=== PATIENT | female | born 1955 | race Caucasian/White ===

== ENCOUNTER 2016-09-30 07:08 | Emergency (ER) | payer BC ==
--- NOTE | 2016-09-30 07:43 | ED ---
Upper Extremity Pain - HPI Summary HPI Summary: 61 female presents today complaining of left wrist pain after falling on ice today, 09/30/16 around 7:00am while at home trying to save her dog from also slipping. Patient states she landed on her left wrist and instantly felt pain. She admits to swelling, minor discoloration and some tingling in her fingers. She has not taken anything for the pain or swelling. Rates her pain an 8/10, sharp upon movement and achey during rest. Some radiation to distal forearm. Complains of the worst pain on the volar wrist. Denies pain in the left elbow, fingers, hand and shoulder. Denies hitting her head, no LOC. States she broke her ankle in the past but it did not hurt as bad as this. - History of Current Complaint Chief Complaint: EDExtremityUpper Stated Complaint: FALL / LT WRIST INJURY Hx Obtained From: Patient Mechanism Of Injury: Fall From A Standing Position - slipped on ice, FOOSH Onset/Duration: Started Hours Ago - approximately 7:00am Timing: Constant Severity Initially: Moderate Severity Currently: Moderate Pain Location: Wrist - left wrist, more across the ventral side Character: Sharp, Aching, Throbbing, Stiffness Aggravating Factor(s): Movement, Lifting, Flexion, Extension, Internal/External Rotation, Abduction, Adduction, Twisting, Pulling Alleviating Factor(s): Rest, Ice Associated Signs & Symptoms: Positive: Swelling, Bruising, Weakness, Numbness/ Tingling. Negative: Back Pain, Neck Pain Related History: Dominant Hand Right - Risk Factors Non-Orthopedic Risk Factor: Negative DVT Risk Factors: Negative Septic Arthritis Risk Factor: Negative - Allergies/Home Medications Allergies/Adverse Reactions: Allergies Allergy/AdvReac Type Severity Reaction Status Date / Time Penicillins Allergy Intermediate Hives Verified 09/30/16 07:17 PMH/Surg Hx/FS Hx/Imm Hx Endocrine/Hematology History: Reports: Hx Thyroid Disease - HYPO Denies: Hx Diabetes Cardiovascular History: Reports: Hx Hypertension Respiratory History: Denies: Hx Asthma, Hx Chronic Obstructive Pulmonary Disease (COPD) GI History: Reports: Hx Gastroesophageal Reflux Disease Denies: Hx Ulcer Musculoskeletal History: Reports: Hx of Fracture(s) - ankle Psychiatric History: Reports: Hx Depression - Surgical History Surgery Procedure, Year, and Place: APPENDECTOMY. LEFT OVARY AND FALLOPIAN TUBE REMOVAL. Sinus surgery Infectious Disease History: No Infectious Disease History: Denies: Hx Clostridium Difficile, Hx Hepatitis, Hx Human Immunodeficiency Virus (HIV), Hx of Known/Suspected MRSA, Hx Shingles, Hx Tuberculosis, Hx Known/ Suspected VRE, History Other Infectious Disease, Traveled Outside the [place] in Last 30 Days - Family History Known Family History: Positive: Hypertension - Social History Alcohol Use: Occasionally Substance Use Type: Reports: None Smoking Status (MU): Never Smoked Tobacco Have You Smoked in the Last Year: No Review of Systems Constitutional: Negative Eyes: Negative ENT: Negative Cardiovascular: Negative Respiratory: Negative Gastrointestinal: Negative Genitourinary: Negative Positive: Arthralgia - left wrist, Myalgia, Decreased ROM, Edema Skin: Negative Positive: Weakness - left wrist due to pain, Numbness - left fingers are tingling, however sensation still 5/5 Psychological: Normal All Other Systems Reviewed And Are Negative: Yes Physical Exam Triage Information Reviewed: Yes Vital Signs On Initial Exam: Initial Vitals Temp Pulse Resp BP Pulse Ox 98.0 F 81 16 105/66 100 09/30/16 07:12 09/30/16 07:12 09/30/16 07:12 09/30/16 07:12 09/30/16 07:12 Vital Signs Reviewed: Yes Appearance: Positive: Well-Appearing, Well-Nourished, Pain Distress - mild during rest of left wrist Skin: Positive: Warm, Skin Color Reflects Adequate Perfusion - <2 sec cap refill , skin intact, Dry Head/Face: Positive: Normal Head/Face Inspection Eyes: Positive: Normal ENT: Positive: Normal ENT inspection Neck: Positive: Supple, Nontender Respiratory/Lung Sounds: Positive: Clear to Auscultation, Breath Sounds Present Cardiovascular: Positive: Normal, RRR Abdomen Description: Positive: Nontender Musculoskeletal: Positive: Limited @ - Left wrist on flexion, extenstion, radial and ulnar deviation. pain on palpation of distal forearm. left wrist minor ecchymosis on vola/ulnar side. no crepitus noted. difficult to feel for step-off due to edema and discomfort of patient. strength of left wrist limited due to pain. Able to move all digits and make fist, however causes pain. Sensation 5/5. Patient complains of tingling in digits. Obvious deformity on volar, ulnar side when compared to the right wrist. 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 No left elbow/hand/finger/shoulder pain on palpation, full ROM. Right wrist normal., Pain @ - left wrist 8/10. exacerbated during movement, Edema Left - wrist Neurological: Positive: Normal, Sensory/Motor Intact, Alert, Oriented to Person Place, Time, CN Intact II-III, Reflexes Intact Psychiatric: Positive: Normal Diagnostics - Vital Signs Vital Signs Temp Pulse Resp BP Pulse Ox 09/30/16 07:12 98.0 F 81 16 105/66 100 - Laboratory Lab Statement: Any lab studies that have been ordered have been reviewed, and results considered in the medical decision making process. - Radiology left wrist Xray Interpretation: Positive (See Comments) - COMMINUTED INTRA-ARTICULAR FRACTURES OF THE DISTAL RADIUS AND ULNA Radiology Interpretation Completed By: Radiologist Course/Dx - Course Course Of Treatment: Patient was given ice and pain management. Left wrist X- ray was taken, showing radial and ulnar head fractures. Discussed care with Dr Abernathy. Sugar tong splint was applied. Patient will be given pain management and sling to take home. - Diagnoses Differential Diagnosis/HQI/PQRI: Positive: Arthritis, Contusion, Fracture ( Closed), Strain, Sprain Provider Diagnoses: Fracture of radial head, left, closed, Closed fracture of head of left ulna, Colles' fracture - Physician Notifications Discussed Care Of Patient With: Dr Daisy Abernathy Orthopedics Time Discussed With Above Provider: 08:55 Instructed by Provider To: Have Pt Call For Appt. - Will be seen in office on Sunday10/02/16. Discharge - Discharge Plan Condition: Stable Disposition: HOME Prescriptions: HYDROcodone/ACETAMIN 5-325 MG* [[place] 5-325 TAB*] 1 tab PO Q6H PRN #12 tab MDD 4 pills PRN Reason: Pain Patient Education Materials: Arm Fracture in Adults (ED), Hydrocodone/ Acetaminophen (By mouth), Wrist Fracture in Adults (ED) Referrals: No Primary Care Phys,NOPCP [Primary Care Provider] - Daisy Abernathy MD [Medical Doctor] - Additional Instructions: Please call orthopedics first thing Sunday morning to be evaluated. Take medication as prescribed for pain and inflammation as needed. Ice and elevation will also help with pain and swelling. If anything worsens or if the splint feels to tight (numb, cold fingers) please return to the ER immediately.
[2016-09-30] MEDS ORDERED: HYDROcodone/ACETAMIN 5-325 MG* 1 TAB PO ONE (07:51)
--- NOTE | 2016-09-30 08:41 | RAD ---
INDICATION: Left wrist injury COMPARISON: August 08, 2011 TECHNIQUE: AP, lateral, and oblique views were obtained. FINDINGS: There is a mildly impacted, comminuted, intra-articular distal radial fracture. There is also a fracture the distal ulna with comminution. There is mild angular deformity. There is diffuse soft tissue swelling.. IMPRESSION: COMMINUTED INTRA-ARTICULAR FRACTURES OF THE DISTAL RADIUS AND ULNA
[2016-09-30 10:49] VITALS: BP 166/68
== END 2016-09-30 10:43 | disposition home or self-care (01) ==
LOC: ED 07:08
DX: S52.122A Displaced fracture of head of left radius, initial encounter for closed fracture (principal); S52.602A Unspecified fracture of lower end of left ulna, initial encounter for closed fracture; W00.9XXA Unspecified fall due to ice and snow, initial encounter; Y93.9 Activity, unspecified; Y92.9 Unspecified place or not applicable; Y99.9 Unspecified external cause status; Z88.0 Allergy status to penicillin
CPT/HCPCS: 99282

== ENCOUNTER → 2016-10-03 | Day surgery (SDC) | payer BC ==
--- NOTE | 2016-10-02 16:13 | HP ---
PREOPERATIVE HISTORY AND PHYSICAL: DATE OF ADMISSION/SURGERY: 10/03/16 DATE OF OFFICE VISIT/ENCOUNTER: 10/02/16 ATTENDING SURGEON: Daisy Abernathy MD PROCEDURE: Left wrist open reduction internal fixation. CHIEF COMPLAINT: Left wrist pain after fall. HISTORY OF PRESENT ILLNESS: This is a 61-year-old female who sustained injury to her left wrist on 09/30/16 when she was trying to help her dog on some ice, when she slipped falling on to an outstretched left hand. She was seen at [facility] and had x-rays taken, which showed a comminuted displaced fracture of her distal radius. She was splinted in a sugar-tong splint, and referred to Dr. Abernathy for further evaluation and treatment considerations. This is her nondominant hand. Dr. Abernathy is recommending surgical intervention at this time for best outcome. The patient has consented to proceed. PAST MEDICAL HISTORY: 1. Hypertension. 2. Hypothyroidism. 3. GERD. 4. Depression/anxiety. 5. Arthritis. PAST SURGICAL HISTORY: 1. Appendectomy. 2. Sinus surgery. CURRENT MEDICATIONS: 1. Calcium 500 plus vitamin D twice a day. 2. Leflunomide 20 mg daily. 3. Levothyroxine sodium 150 mcg daily. 4. Lisinopril 20 mg daily. 5. Multivitamin 1 daily. 6. Venlafaxine HCL ER 75 mg 1 tab b.i.d. 7. Vitamin C 500 mg 1 tab daily. ALLERGIES: 1. PENICILLIN causes hives. 2. PROZAC causes headache. FAMILY MEDICAL HISTORY: Ovarian cancer and lung cancer. 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 She denies tobacco and illicit drug use. She does admit to alcohol use on occasion. REVIEW OF SYSTEMS: General: Negative for fevers, chills, or night sweats. No known anesthesia problems. HEENT: Negative for headache, lightheadedness, or syncopal episodes. Integumentary: Negative for abrasions, lesions, or open wounds. Cardiothoracic: Positive for hypertension. Negative for chest pain or palpitations. Pulmonary: Negative for shortness of breath with exertion, chronic cough, or COPD. GI: Positive for GERD. Negative for nausea, vomiting , diarrhea, or constipation. : Negative for nocturia, urinary frequency, urgency, history of UTIs, or kidney problems. Musculoskeletal: Positive for current complaint. Negative for chronic or intermittent back pain or history of fractures. Neurological: Positive for depression/anxiety. Negative for paresthesias, numbness, history of seizure, stroke, or epilepsy. Endocrine: Positive for hypothyroidism. Negative for diabetes. Hematologic: Negative for easy bruising, anemia, excessive bleeding, or history of DVT. Infectious Disease: Negative for history of MRSA, hepatitis C, or HIV. PHYSICAL EXAMINATION GENERAL: Well-developed, well nourished 61-year-old female, in no acute distress. VITAL SIGNS: Height 5 feet 4 inches, weight 190 pounds, pulse rate 60, blood pressure 96/60. HEENT: Normocephalic, atraumatic. Pupils are equal, round, and reactive to light and accommodation. Extraocular movements are intact. NECK: Supple. No palpable lymph nodes. Throat is clear. PULMONARY: Lungs are clear to auscultation bilaterally. No wheezes, rales, or rhonchi. CARDIOTHORACIC: Regular rate and rhythm. S1 and S2. No murmurs, rubs, or gallops. No edema. ABDOMEN: Positive bowel sounds, soft, nontender. NEUROLOGICAL: Alert and oriented x3. Cranial nerves II through X11 were intact. Sensation is intact to light touch. MUSCULOSKELETAL: On exam of her left upper extremity, she is in a well-padded sugar-tong splint. Her fingers have mild swelling. She has good motion in her fingers and neurovascular function is intact. IMAGING STUDIES: X-ray, AP, lateral, and oblique of the left wrist show comminuted intraarticular distal radius fracture with significant apex, volar angulation, as well as a nondisplaced ulnar styloid fracture. IMPRESSION: Left distal radius and ulnar styloid fracture. PLAN: The patient is scheduled to an open reduction internal fixation at the left distal radius with Dr. Abernathy on 10/03/16. She will return to the office in 10 to 14 days postop for followup and suture removal. A prescription for oxycodone 5 mg was e-scribed to the patient's pharmacy for postoperative pain management. EMERALD FLOWER [id number]/[facility] #: [id number] NIMESH
[~2016-10-03] MED LIST: Acetaminophen TAB* 325 MG PO PRN; Buffered Lidocaine 1% SYR 3ML* 3 ML/SYR SYRINGE INTRADERM ONE; Buffered Lidocaine 1% SYR 3ML* 3 ML/SYR SYRINGE ONE; Bupivacaine 0.5% SDV PF* 30 ML VIAL ONE; Clindamycin 900 MG IVPREMIX(* 900 MG/50 ML SDV IV ONE; Dexamethasone IV* 4 MG/ML 1 ML (4 MG) ONE; DiMENhydriNATE IV* 50 MG/ML VIAL IV PUSH PRN; EPHEDrine (Pressors)* 50 MG/ML VIAL ONE; Famotidine IV* 10 MG/ML 2 ML (20 mg) IV ONE; Famotidine IV* 10 MG/ML 2 ML (20 mg) ONE; HYDROmorphone INJ* 1 MG/ML CARPUJECT SYRINGE IV PRN; HYDROmorphone INJ* 1 MG/ML CARPUJECT SYRINGE ONE; KETAMINE HCL* 50 MG/ML 10 ML VIAL ONE; Ketorolac INJ* 30 MG/ML 1 ML VIAL ONE; Lidocaine 2% PF * 5 ML VIAL ONE; Midazolam* 1 MG/ML 5 ML VIAL (5 MG) ONE; Ondansetron INJ* 2 MG/ML VIAL ONE; Phenylephrine IV* 40 MCG/ML 10 ML SYRINGE ONE; Propofol* 10 MG/ML 20 ML BTL IV PUSH ONE; ROPIVACAINE 5 MG/ML 30 ML BTL (0.5%) ONE; fentaNYL* 50 MCG/ML 2 ML VIAL (100 MCG VIAL) ONE; oxyCODONE/Acetamin 5/325 MG* TAB PO PRN
[2016-10-03 16:22] VITALS: BP 99/55
--- NOTE | 2016-10-04 02:50 | OP ---
DATE OF OPERATION: 10/03/16 - [facility] DATE OF : 53 SURGEON: Daisy Abernathy MD DISEASE INTERVENTION SPECIALIST: EMERALD Hernandez ANESTHESIOLOGIST: Anya Hutchins MD ANESTHESIA: General. PRE-OP DIAGNOSIS: Comminuted intraarticular fracture of the left distal radius. POST-OP DIAGNOSIS: Comminuted intraarticular fracture of the left distal radius. OPERATIVE PROCEDURE: Open reduction and internal fixation of the left distal radius. ESTIMATED BLOOD LOSS: Zero. TOURNIQUET TIME: 35 minutes. INDICATIONS: [place] is a 61-year-old female who slipped on the ice when she was trying to help her dog. She landed on her outstretched left hand and suffered a fracture of her distal radius. X-rays shows it to be comminuted markedly angulated with an apex volar angulation deformity and intraarticular with at least 2 intraarticular fragments and several other fragments. There is also a nondisplaced ulnar styloid fracture. The patient presents for open reduction and internal fixation of the left distal radius. DESCRIPTION OF PROCEDURE: The patient was brought to the operating room, was given a general anesthetic, and placed in the supine position on the operating table with a tourniquet around the left upper arm. Skin of the left upper extremity was prepped and draped in the usual sterile fashion. The upper extremity was exsanguinated and the tourniquet elevated to 250 mmHg. A 10 cc of 0.5% plain Marcaine was injected in the area of the incision. A longitudinal incision was made over the FCR tendon. We dissected sharply through the superficial and deep portion of the tendon sheath and then retracted the FPL muscle. The pronator quadratus was incised and subperiosteally dissected off of the distal radius. The fracture fragments were reduced with traction and flexion and a standard 3-hole plate from the [employer] distal radius set was secured with 1 proximal screw. The position of the hardware and fracture fragment was checked on the C-arm in the AP and lateral views and found to be satisfactory. There was good length and dorsal tilt. Two separate intraarticular fragments were secured with separate screws and the 6 distal holes and the plate were filled securing the intraarticular fragments to the proximal fragments. Remaining 2 proximal screws were placed as well. The position of the hardware and fracture fragments were checked on the C- arm in the AP and lateral views and found to be satisfactory. The wound was irrigated. The pronator quadratus was repaired over the plate. The FCR tendon sheath was repaired with 2-0 Polysorb suture and the skin edge was reapproximated with 4-0 nylon suture. The wound was dressed with Xeroform, 4x4, Webril, and a volar splint with the wrist in flexion. The patient tolerated the procedure well and was brought to the recovery room in good condition. [id number]/[facility] #: [id number] NIMESH
--- NOTE | 2016-10-04 17:17 | RAD ---
CPT II Codes: 6045F INDICATION: Fluoroscopic imaging provided during plate and screw fixation of the left distal radius TECHNIQUE: Intraoperative fluoroscopy was provided during plate and screw fixation of the left distal radius. FINDINGS: 2 spot films depict application of a plate and screw fixator overlying the volar surface of the distal left radius spanning the patient's minimally displaced fracture. Fluoroscopy time: 26 seconds IMPRESSION: As above.
== END | disposition home or self-care (01) ==
LOC: OREAST 10:36
PROVIDERS: ATTEND Orthopaedic Surgery
DX: S52.572A Other intraarticular fracture of lower end of left radius, initial encounter for closed fracture (principal); S52.615A Nondisplaced fracture of left ulna styloid process, initial encounter for closed fracture; I10 Essential (primary) hypertension; E03.9 Hypothyroidism, unspecified; W00.2XXA Other fall from one level to another due to ice and snow, initial encounter; Y92.89 Other specified places as the place of occurrence of the external cause
CPT/HCPCS: 76000; C1713; C1776; J1100; J1170; J1885; J2250; J2405; J2704; J2795; J3010

== ENCOUNTER 2018-05-07 13:36 | Emergency (ER) | payer BC ==
[2018-05-07 13:48] VITALS: BP 131/82
--- OUTSIDE RECORDS SUMMARY | 2018-05-07 13:48 | XMS REPORT ---
:1955 External Reference #:[id number] Author Organization [employer] [facility] Address [address] [place] [address] [place] [address] Phone [phone] Care Team Providers Name Role Phone Kaye Vizcaino MD Primary Care Physician Unavailable Payers Type Date Identification Numbers Payment Provider Subscriber Health Maintenance Effective: Policy Number: [facility] Organization (HMO) 09/17/2017 [id number] Expires: 09/17/2017 PayID: [id number] [address] [address] [place] [address] Medigap Part B Policy Number: [id number] [facility] PayID: [id number] [address] [place] [address] Problems Date Description Provider Status Onset: 03/18/2012 Degenerative joint disease of hand Devaughn Covington M.D. Active Note: xr hands xr lumbar Onset: 03/18/2012 Rheumatoid arthritis Devaughn Covington M.D. Active Note: marginal diagnosis- mild elev crp, auto immune activation ashley positive low titre, anca positive low titre but without specific clinical features rf neg , ccp neg Onset: 01/23/2018 Obstructive sleep apnea Anya Christie DNP, RN, Active syndrome M[employer] INTELLIGENCE OFFICER-BC Onset: 01/23/2018 Body mass index 30+ - obesity Anya Christie DNP, RN, Active [employer] INTELLIGENCE OFFICER-BC Family History Date Family Member(s) Problem(s) Comments General Lung Cancer Father Lung Cancer Father due to Lung Cancer () Father Heavy smoker Mother Ovarian Cancer Mother due to Ovarian Cancer () Mother Heavy smoker Siblings 2 1 brother and 1 sister Social History Type Date Description Comments Marital Status Lives With 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 Cigarette Use Never Smoked Cigarettes ETOH Use Occasionally consumes alcohol Smoking Patient has never smoked Recreational Drug Use Denies Drug Use Daily Caffeine Consumes on average 3 cups of regular coffee per day Exercise Type/Frequency Exercises regularly Walking every day Allergies, Adverse Reactions, Alerts Date Description Reaction Status Severity Comments 02/07/2011 Penicillin active 02/07/2011 Prozac active 01/23/2018 Environmental active Dust mites, sugar maple tree pollen Medications Medication Date Status Form Strength Qnty SIG Indications Ordering Provider Humira 03/08 Active PSKT 40mg/0.8M 6unit inject 40 L s mg Aurora, subcutaneo M.D. us once every other week prefilled syringe Meloxicam 02/13 Active Tablets 7.5mg 45tab take one s tab twice Aurora, daily as M.D. needed for pain, avoid other nsaids Voltaren 12/31 Active Gel 1% 200un apply 2 M06.4 its grams Aurora, twice M.D. daily as needed for pain to the hands Osteo Bi Flex 11/29 Active Tablets not taking Anival Simon Levothyroxine Active Tablets 125mcg 90tab 1 po qd Unknown Sodium s Calcium-Magnesium- Active Tablets -D3 qid Unknown Zinc-D3 Multi Vitamin Active Tablets 1 po qd Lisinopril Active Tablets 10mg 1 po qd Venlafaxine HCL ER Active Caps ER 75mg 30cap once daily 24HR s with a 150 mg tab daily Vitamin B-Complex Active Tablets 1 by mouth Unknown every day Melatonin Active Capsules 10mg 1 tab by Unknown /0000 mouth at bedtime as needed for insomnia Prednisone 03/08 Hx Tablets 10mg 30tab take 4 s tabs by Aurora, - mouth M.D. 04/04 daily for 2 days then 3 tabs daily for 2 days then 2 tabs for 2 days then 1 tab for 2 days then d/c Sulfasalazine 02/26 Hx Tablets 500mg 45tab Take one s capsule/ta Aurora, - blet daily M.D. 03/08 by mouth for 1 week then 1 twice daily ongoing Oxycodone HCL 10/02 Hx Tablets 5mg 30tab 1-2 by S52.572A Daisy mouth Michela, - after M.D. 11/16 therapy needed pain Leflunomide 12/14 Hx Tablets 20mg 30tab 1 po qd carlos Covington M.D. - 12/31 Meloxicam 02/07 Hx Tablets 15mg 90tab take 1 s tablet by Anival Covington - mouth once 12/31 Hydroxychloroquine 01/12 Hx Tablets 200mg 60tab 1 po bid carlos Covington M.D. - 08/08 Leflunomide 12/30 Hx Tablets 20mg 90tab 1 po qd carlos Covington M.D. - 08/08 Vitamin C Hx Tablets 500mg 90tab 1 po qd Unknown /0000 ER s - 11/29 Medications Administered in Office Medication Date Status Form Strength Qnty SIG Indications Ordering Provider PPD Administered Injection Nurse Visit 8 RH Immunizations CPT Code Status Date Vaccine Reaction Lot # [id number] Given 04/04/2018 Pneumococcal Conjugate no immediate reaction [id number] Vaccine 13 Valent For noted Intramuscular Use Vital Signs Date Vital Result Comment 04/23/2018 Height 64 inches 5'4" Weight 203.31 lb Heart Rate 66 /min BP Systolic Sitting 124 mmHg Rue large cuff BP Diastolic Sitting 82 mmHg Rue large cuff Respiratory Rate 16 /min O2 % BldC Oximetry 96 % BMI (Body Mass Index) 34.9 kg/m2 04/04/2018 Height 64 inches 5'4" Weight 202.00 lb Heart Rate 95 /min BP Systolic Sitting 111 mmHg BP Diastolic Sitting 67 mmHg Respiratory Rate 14 /min Pain Level 2 BMI (Body Mass Index) 34.7 kg/m2 01/23/2018 Height 64 inches 5'4" Weight 199.25 lb Heart Rate 86 /min BP Systolic Sitting 122 mmHg Lue reg cuff BP Diastolic Sitting 80 mmHg Lue reg cuff Respiratory Rate 16 /min O2 % BldC Oximetry 96 % On Ra BMI (Body Mass Index) 34.2 kg/m2 01/14/2018 Height 64 inches 5'4" Weight 198.12 lb Heart Rate 72 /min BP Systolic Sitting 120 mmHg BP Diastolic Sitting 70 mmHg Respiratory Rate 14 /min O2 % BldC Oximetry 95 % BMI (Body Mass Index) 34.0 kg/m2 Neck Circumference in inches 15 12/31/2017 Height 64 inches 5'4" Weight 200.00 lb Heart Rate 80 /min BP Systolic Sitting 104 mmHg BP Diastolic Sitting 62 mmHg Respiratory Rate 14 /min Pain Level 3 BMI (Body Mass Index) 34.3 kg/m2 11/29/2017 Height 64 inches 5'4" Weight 200.38 lb Heart Rate 72 /min BP Systolic Sitting 128 mmHg BP Diastolic Sitting 89 mmHg Respiratory Rate 14 /min Pain Level 3 BMI (Body Mass Index) 34.4 kg/m2 12/11/2016 Height 64 inches 5'4" Weight 170.00 lb Heart Rate 82 /min BP Systolic 120 mmHg BP Diastolic 78 mmHg Respiratory Rate 14 /min Body Temperature 97.1 F Pain Level 3 BMI (Body Mass Index) 29.2 kg/m2 11/13/2016 Height 64 inches Weight 170.00 lb Heart Rate 74 /min BP Systolic 120 mmHg BP Diastolic 74 mmHg Respiratory Rate 14 /min Pain Level 2 BMI (Body Mass Index) 29.2 kg/m2 10/16/2016 Height 64 inches 5'4" Weight 170.00 lb Respiratory Rate 18 /min Body Temperature 97.6 F Pain Level 0 BMI (Body Mass Index) 29.2 kg/m2 10/02/2016 Height 64 inches 5'4" Weight 190.00 lb Heart Rate 60 /min BP Systolic Sitting 96 mmHg BP Diastolic Sitting 60 mmHg Respiratory Rate 16 /min Pain Level 8 BMI (Body Mass Index) 32.6 kg/m2 03/18/2012 Weight 201.00 lb BP Systolic 116 mmHg BP Diastolic 78 mmHg 12/15/2011 Height 63.5 inches 5'3.50" Weight 198.38 lb Heart Rate 72 /min BP Systolic Sitting 130 mmHg BP Diastolic Sitting 72 mmHg BMI (Body Mass Index) 34.6 kg/m2 08/08/2011 Height 63.5 inches 5'3.50" Weight 203.00 lb Heart Rate 78 /min BP Systolic Sitting 118 mmHg BP Diastolic Sitting 80 mmHg BMI (Body Mass Index) 35.4 kg/m2 05/02/2011 Weight 194.00 lb Heart Rate 78 /min BP Systolic 128 mmHg BP Diastolic 70 mmHg 02/07/2011 Height 61 inches 5'1" Weight 198.00 lb Heart Rate 68 /min BP Systolic 122 mmHg BP Diastolic 70 mmHg BMI (Body Mass Index) 37.4 kg/m2 Results Test Date Test Result H/L Range Note Comp Metabolic Panel 04/03/2018 Sodium 139 mmol/L 135-145 Potassium 4.1 mmol/L 3.5-5.0 Chloride 103 mmol/L 101-111 Co2 Carbon Dioxide 28 mmol/L 22-32 Anion Gap 8 mmol/L 2-11 Glucose 93 mg/dL 70-100 Blood Urea Nitrogen 16 mg/dL 6-24 Creatinine 0.56 mg/dL 0.51-0.95 BUN/Creatinine Ratio 28.6 High 8-20 Calcium 9.0 mg/dL 8.6-10.3 Total Protein 6.3 g/dL Low 6.4-8.9 Albumin 3.8 g/dL 3.2-5.2 Globulin 2.5 g/dL 2-4 Albumin/Globulin Ratio 1.5 1-3 Total Bilirubin 0.40 mg/dL 0.2-1.0 Alkaline Phosphatase 57 U/L 34-104 Alt 18 U/L 7-52 Ast 15 U/L 13-39 Egfr Non- 109.0 >60 Egfr 131.9 >60 1 Laboratory test finding 04/03/2018 C Reactive Protein 12.84 mg/L High < 8.01 CBC Auto Diff 04/03/2018 White Blood Count 7.0 10^3/uL 3.5-10.8 Red Blood Count 4.41 10^6/uL 4.00-5.40 Hemoglobin 12.6 g/dL 12.0-16.0 Hematocrit 38 % 35-47 Mean Corpuscular Volume 86 fL 80-97 Mean Corpuscular Hemoglobin 29 pg 27-31 Mean Corpuscular HGB Conc 33 g/dL 31-36 Red Cell Distribution Width 16 % High 10.5-15 Platelet Count 198 10^3/uL 150-450 Mean Platelet Volume 7.6 um3 7.4-10.4 Abs Neutrophils 4.4 10^3/uL 1.5-7.7 Abs Lymphocytes 1.8 10^3/uL 1.0-4.8 Abs Monocytes 0.4 10^3/uL 0-0.8 Abs Eosinophils 0.3 10^3/uL 0-0.6 Abs Basophils 0 10^3/uL 0-0.2 Abs Nucleated RBC 0 10^3/uL Granulocyte % 63.3 % 38-83 Lymphocyte % 26.4 % 25-47 Monocyte % 5.9 % 0-7 Eosinophil % 3.8 % 0-6 Basophil % 0.6 % 0-2 Nucleated Red Blood Cells % 0 Laboratory test finding 04/03/2018 Erythrocyte Sed Rate 11 mm/Hr 0-30 Laboratory test finding 02/19/2018 Erythrocyte Sed Rate 16 mm/Hr 0-30 2 C Reactive Protein 6.92 mg/L High < 5.00 3 CBC Auto Diff 02/19/2018 White Blood Count 5.9 10^3/uL 3.5-10.8 Red Blood Count 4.54 10^6/uL 4.0-5.4 Hemoglobin 13.1 g/dL 12.0-16.0 Hematocrit 39 % 35-47 Mean Corpuscular Volume 86 fL 80-97 Mean Corpuscular Hemoglobin 29 pg 27-31 Mean Corpuscular HGB Conc 34 g/dL 31-36 Red Cell Distribution Width 15 % 10.5-15 Platelet Count 255 10^3/uL 150-450 Mean Platelet Volume 7.5 um3 7.4-10.4 Abs Neutrophils 3.7 10^3/uL 1.5-7.7 Abs Lymphocytes 1.7 10^3/uL 1.0-4.8 Abs Monocytes 0.3 10^3/uL 0-0.8 Abs Eosinophils 0.1 10^3/uL 0-0.6 Abs Basophils 0 10^3/uL 0-0.2 Abs Nucleated RBC 0 10^3/uL Granulocyte % 62.6 % 38-83 Lymphocyte % 29.0 % 25-47 Monocyte % 5.8 % 0-7 Eosinophil % 2.0 % 0-6 Basophil % 0.6 % 0-2 Nucleated Red Blood Cells % 0.1 Comp Metabolic Panel 02/19/2018 Sodium 141 mmol/L 139-145 Potassium 4.0 mmol/L 3.5-5.0 Chloride 106 mmol/L 101-111 Co2 Carbon Dioxide 30 mmol/L 22-32 Anion Gap 5 mmol/L 2-11 Glucose 104 mg/dL High 70-100 Blood Urea Nitrogen 15 mg/dL 6-24 Creatinine 0.60 mg/dL 0.51-0.95 BUN/Creatinine Ratio 25.0 High 8-20 Calcium 8.6 mg/dL 8.6-10.3 Total Protein 6.4 g/dL 6.4-8.9 Albumin 3.8 g/dL 3.2-5.2 Globulin 2.6 g/dL 2-4 Albumin/Globulin Ratio 1.5 1-3 Total Bilirubin 0.30 mg/dL 0.2-1.0 Alkaline Phosphatase 63 U/L 34-104 Alt 22 U/L 7-52 Ast 17 U/L 13-39 Egfr Non- 100.6 >60 Egfr 129.4 >60 4 Laboratory test finding 12/26/2017 Myeloperoxidase AB 3.9 U 5 Proteinase 3 <0.2 U 6 Urinalysis Profile 12/26/2017 Urine Color Yellow Urine Appearance Cloudy Urine Specific Lawler 1.009 Low 1.010-1.030 Urine pH 6.0 5-9 Urine Urobilinogen Negative Negative Urine Ketones Negative Negative Urine Protein Negative Negative Urine Leukocytes Negative Negative Urine Blood Negative Negative Urine Nitrite Negative Negative Urine Bilirubin Negative Negative Urine Glucose Negative Negative Ana Igg AB Reflex 11/29/2017 SS-A/Ro Antibody <0.2 U 7 SS-B/La Antibody <0.2 U 8 Sm (Llamas) IgG Antibody <0.2 U 9 U1-nRNP Antibody <0.2 U 10 Scl-70 (Scleroderma) Antibody <0.2 U 11 Shasha-1 Antibody <0.2 U 12 Anca AB Ser If 11/29/2017 C-Anca Negative Negative P-Anca Positive Negative 13 Laboratory test finding 11/29/2017 Angiotensin Converting Enzyme 21 U/L 8 - 53 14 TSH (Thyroid Stim Horm) 1.13 mcIU/mL 0.34-5.60 15 C Reactive Protein 10.38 mg/L High < 5.00 16 Hla B27 11/29/2017 Hla B27 Negative 17 Hla B27 Interp See Comment 18 Laboratory test finding 11/29/2017 Creatine Kinase(CK) 37 U/L 10-223 19 Rheumatoid Factor <10 IU/mL 0-14 20 Cyclic Citrullinated Pep Igg <15.6 U 21 Immunoglobulins Serum Quant 11/29/2017 Immunoglobulin G 912 mg/dL 767 - 1590 22 Immunoglobulin M 86 mg/dL 37 - 286 Immunoglobulin A 259 mg/dL 61 - 356 Basic Metabolic Panel 11/29/2017 Sodium 138 mmol/L 133-145 Potassium 4.3 mmol/L 3.5-5.0 Chloride 102 mmol/L 101-111 Co2 Carbon Dioxide 30 mmol/L 22-32 Anion Gap 6 mmol/L 2-11 Glucose 102 mg/dL High 70-100 Blood Urea Nitrogen 13 mg/dL 6-24 Creatinine 0.54 mg/dL 0.51-0.95 BUN/Creatinine Ratio 24.1 High 8-20 Calcium 9.2 mg/dL 8.6-10.3 Egfr Non- 114.0 >60 Egfr 146.6 >60 23 Pthi 11/29/2017 Calcium (PTH Intact) 9.3 mg/dL 8.6-10.3 PTH Intact 3.6 pmol/L 1.3-9.3 Vitamin B12 And Folate Serum 11/29/2017 Vitamin B12 223 pg/mL 180-914 24 Folic Acid (Folate) > 20.00 ng/mL >3.99 25 Laboratory test finding 11/29/2017 Erythrocyte Sed Rate 17 mm/Hr 0-30 26 Complement C3 144 mg/dL 75 - 175 27 Nuclear AB (Ashley) By Ifa Igg <1:80 (Negative) 28 Complement C4 30 mg/dL 14 - 40 29 Anti Double Stranded Dna AB <12.3 IU/mL 30 Basic Metabolic Panel 02/22/2012 Sodium 140 mmol/L 135-145 Potassium 4.2 mmol/L 3.5-5.0 Chloride 105 mmol/L 101-111 Co2 (Carbon Dioxide) 31.0 mmol/L 22-32 Anion Gap 4.0 mmol/L 2-11 31 Glucose 103 mg/dL High 70-100 BUN 13 mg/dL 6-24 Creatinine 0.5 mg/dL Low 0.50-1.40 One Over Creatinine 2.00 BUN/Creatinine Ratio 26.0 High 8-20 Calcium 9.1 mg/dL 8.1-9.9 eGFR Non- 126.7 > 60 eGFR 163.0 > 60 32 Liver Function Panel 02/22/2012 Total Protein 6.0 GM/DL Low 6.2-8.1 Albumin 3.8 GM/DL 3.6-5.4 Globulin 2.2 GM/DL 2-4 Albumin/Globulin Ratio 1.7 1-3 Bilirubin Total 0.6 mg/dL 0.4-1.5 33 Bilirubin Direct 0.1 mg/dL 0.1-0.5 Indirect Bilirubin 0.5 mg/dL 0.3-1.0 34 Alkaline Phosphatase 69 U/L 30-110 Alt (SGPT) 34 U/L 14-54 Ast (Sgot) 24 U/L 12-42 Laboratory test finding 02/22/2012 C Reactive Protein 0.6 mg/dL High Less Than 0.5 CBC With Manual Diff 02/22/2012 White Blood Count 3.9 CUMM Low 4.8-10.8 Red Cell Count 4.39 CUMM 4.2-5.4 Hemoglobin 12.9 g/dL 12.0-16.0 Hematocrit 38 % 35-47 Mean Corpuscular Volume 86 um3 79-97 Mean Corpuscular Hemoglob 29 pg 27-31 Mean Corpuscular HGB Cone 34 g/dL 32-36 Redcell Distribution WDTH 15 % 10.5-15 Platelet Count 248 CUMM 150-450 Mean Platelet Volume 7.9 um3 7.4-10.4 Absolute Neutrophil Count 2.6 1.5-7.7 Polysegmented Neutrophil 77 % 38-83 Lymphocyte 14 % Low 25-47 Monocyte 4 % 0-13 Eosinophil 5 % 0-6 RBC Morphology NORMAL Laboratory test finding 02/22/2012 Erythrocyte Sed Rate 14 MM/HR 0-30 Cyclic Citrullinated Pep Igg <15.6 U () 35 Rheumatoid Factor < 15 IU/mL <15 36 1 Because ethnic data is not always readily available, this report includes an eGFR for both -Americans and non- Americans. The National Kidney Disease Education Program (NKDEP) does not endorse the use of the MDRD equation for patients that are not between the ages of 18 and 70, are , have extremes of body size, muscle mass, or nutritional status, or are non- or non-. According to the National Kidney Foundation, irrespective of diagnosis, the stage of the disease is based on the level of kidney function: Stage Description GFR(mL/min/1.73 m(2)) 1 Kidney damage with normal or decreased GFR 90 2 Kidney damage with mild decrease in GFR 60-89 3 Moderate decrease in GFR 30-59 4 Severe decrease in GFR 15-29 5 Kidney failure <15 (or dialysis) 2 Please check 2 days before follow up 3 Acute inflammation: >10.00 4 Because ethnic data is not always readily available, this report includes an eGFR for both -Americans and non- Americans. The National Kidney Disease Education Program (NKDEP) does not endorse the use of the MDRD equation for patients that are not between the ages of 18 and 70, are , have extremes of body size, muscle mass, or nutritional status, or are non- or non-. According to the National Kidney Foundation, irrespective of diagnosis, the stage of the disease is based on the level of kidney function: Stage Description GFR(mL/min/1.73 m(2)) 1 Kidney damage with normal or decreased GFR 90 2 Kidney damage with mild decrease in GFR 60-89 3 Moderate decrease in GFR 30-59 4 Severe decrease in GFR 15-29 5 Kidney failure <15 (or dialysis) 5 Interpretation: Positive (>=1.0) REFERENCE VALUE <0.4 (Negative) Test Performed by: [address] [address] 6 REFERENCE VALUE <0.4 (Negative) Test Performed by: [address] [address] 7 REFERENCE VALUE <1.0 (Negative) 8 REFERENCE VALUE <1.0 (Negative) 9 REFERENCE VALUE <1.0 (Negative) 10 REFERENCE VALUE <1.0 (Negative) 11 REFERENCE VALUE <1.0 (Negative) 12 REFERENCE VALUE <1.0 (Negative) Test Performed by: [place] [address] 13 Positive for pANCA pattern by immunofluorescence. Suggest further testing for anti-myeloperoxidase (anti-MPO) antibodies, if clinically indicated. ADDITIONAL INFORMATION This test was developed and its performance characteristics determined by [facility] in a manner consistent with CLIA requirements. This test has not been cleared or approved by the U.S. Food and Drug Administration. Test Performed by: [place] [address] 14 Test Performed by: [place] [address] 15 Please check today 16 Acute inflammation: >10.00 17 REFERENCE VALUE Not Applicable 18 RESULT: HLA-B27 antigen was not detected. ADDITIONAL INFORMATION Method: Flow Cytometry Performing Laboratory CLIA# [id number] Test Performed by: [place] [address] 19 Please check today 20 Performed by [employer], [address] [place] [address] [email or web address] Angel Craft MD - Lab. Director Test Performed by: [employer] [facility] [address] [place] [address] 21 REFERENCE VALUE <20.0 (Negative) Test Performed by: [address] [address] 22 Test Performed by: [place] [address] 23 Because ethnic data is not always readily available, this report includes an eGFR for both -Americans and non- Americans. The National Kidney Disease Education Program (NKDEP) does not endorse the use of the MDRD equation for patients that are not between the ages of 18 and 70, are , have extremes of body size, muscle mass, or nutritional status, or are non- or non-. According to the National Kidney Foundation, irrespective of diagnosis, the stage of the disease is based on the level of kidney function: Stage Description GFR(mL/min/1.73 m(2)) 1 Kidney damage with normal or decreased GFR 90 2 Kidney damage with mild decrease in GFR 60-89 3 Moderate decrease in GFR 30-59 4 Severe decrease in GFR 15-29 5 Kidney failure <15 (or dialysis) 24 Normal Range 180 to 914 Indeterminate Range 145 to 180 Deficient Range <145 25 Please check today 26 Please check today 27 Test Performed by: [facility] [address] [place] [address] 28 <1:80 (Negative) REFERENCE VALUE <1:80 (Negative) Test Performed by: [facility] [address] [place] [address] 29 Test Performed by: [facility] [address] [place] [address] 30 REFERENCE VALUE <30.0 (Negative) Test Performed by: [address] [address] 31 Anion gap measurement may be of limited value in the presence of any alkalosis, especially in a combined acid base disorder. . 32 Because ethnic data is not always readily available, this report includes an eGFR for both -Americans and non- Americans. The National Kidney Disease Education Program (NKDEP) does not endorse the use of the MDRD equation for patients that are not between the ages of 18 and 70, are , have extremes of body size, muscle mass, or nutritional status, or are non- or non-. According to the National Kidney Foundation, irrespective of diagnosis, the stage of the disease is based on the level of kidney function: Stage Description GFR(mL/min/1.73 m(2)) 1 Kidney damage with normal or decreased GFR 90 2 Kidney damage with mild decrease in GFR 60-89 3 Moderate decrease in GFR 30-59 4 Severe decrease in GFR 15-29 5 Kidney failure <15 (or dialysis) 33 A metabolite of Naproxen, O-desmethylnaproxen, has been shown to interfere with the Jendrassik-Licha method for measuring total bilirubin. Samples from patients who have taken Naproxen have shown spurious elevation in total bilirubin levels. 34 Please note updated reference range, effective 04/07/10 35 -- REFERENCE VALUE -- <20.0 (Negative) Test Performed by: [address] [address] Rehab Specialist: Joseph Scott III, M.D. 36 Test Performed by: [address] [address] Rehab Specialist: Joseph Scott III, M.D. Procedures Date CPT Code Description Status Comment 01/17/2018 20296 Diffusing Capacity Completed 01/17/2018 80610 Plethysmography Determination Completed Lung Volumes & Per Airway Resist 01/17/2018 79950 Pulmonary Function><Bronchodil Completed 10/03/2016 57745 Open TX Distal Radial Completed Intra-Articular FX W Fixation Of 3 Or More 10/03/2016 65769 Open TX Distal Radial Completed Intra-Articular FX W Fixation Of 3 Or More 03/29/2012 Diabetic Retinal Eye Exam Completed Document: 03/29/12 - Consult Ophthalmology/Arleo Encounters Type Date Location Provider CPT E/M Dx Office Visit 04/04/2018 Rheumatology Services Anand Simon M.D. 96616 M06.09 3:00p Of [employer] M19.049 R79.82 Z79.899 Z23 Office Visit 01/23/2018 2:15p Pulmonology And Sleep Anya Christie, [address] G47.33 Services Of [facility] MARY, RN, [employer] INTELLIGENCE OFFICER-BC R09.02 Z68.34 Office Visit 01/14/2018 9:30a Pul[place] [address] R06.83 Services Of [facility] E66.09 J98.4 Z68.34 Office Visit 12/31/2017 4:00p Rheumatology Services Of Anand Simon 69537 M06.4 Amol Florian J98.4 Z79.1 R79.82 M19.049 Office Visit 11/29/2017 8:00a Rheumatology Services Of Anand Simon 53211 M06.4 Amol Florian J32.8 R20.8 M79.1 E83.51 R06.83 M25.562 Office Visit 10/02/2016 9:15a Orthopedic Services Daisy Abernathy, 22365 S52.572A Of Maria C Florian Office Visit 03/18/2012 8:20a Rheumatology Services Devaughn Covington [address]6024 714.0 Of Amol Florian 721.0 715.94 V58.69 Office Visit 12/15/2011 11:00a Rheumatology Services Devaughn Covington 80002 715.94 Of Amol Florian 714.0 V58.69 Office Visit 08/08/2011 8:40a Rheumatology Services Dveaughn Covington M.D. 13615 714.0 Of Amol 715.94 Office Visit 05/02/2011 8:40a Rheumatology Services Devaughn Covington M.D. 10459 714.0 Of Amol 721.3 V58.69 Office Visit 02/07/2011 8:40a Rheumatology Services Devaughn Covington M.D. 93992 714.0 Of [facility] V58.61 715.14 Plan of Care Future Appointment(s):07/24/2018 2:30 pm - Anya Christie DNP, RN, [employer] INTELLIGENCE OFFICER- at Pul[facility]ology [facility] Sleep [facility]09/04/2018 2:20 pm - Anand Simon M.D. at Rheumatology [facility]04/23/2018 - Anya Christie DNP, RN, [employer] INTELLIGENCE OFFICER- BCG47.33 Obstructive sleep apnea (adult) (pediatric)Comments:sleep Apnea - AHI 64.8/hour, allan oxygen 67% wt 189# On CPAP AHI 2.9/hourFollow up:3 monthsRecommendations:Continue PAP device, Benefitting and compliant with treatment. Try to keep to the same sleep schedule on weekends (up no later than 6 AM) Therefore try to go to bed earlier ie 830 PM to 9 PM. CleaningWipe off mask daily (baby wipe-no scent, or warm water) Clean mask, tubing, filter, and water chamber weekly in mild no scent dish soap and water. Hang to dry. So- Clean is an option (not covered by insurance) If you have any sleepiness while driving you MUST avoid operating a vehicle or machinery. If you have difficulty with your equipment, or need to replace your mask or hoses, please contact your homecare agency. A weight change of 20 pounds or more may have an effect on your equipment; if you are experiencing problems please call for an appointment. If you have any further questions, please call the [facility] at [phone].
--- NOTE | 2018-05-07 14:18 | UC ---
Respiratory Complaint HPI - HPI Summary HPI Summary: 3 WEEKS OF HEAD CONGESTION, NASAL CONGESTION/IRRITATION, COUGH, FATIGUE. NO FEVER. NOT GETTING BETTER. HAS SOME BLOODY MUCUS FROM NOSE FROM TIME TO TIME. - History of Current Complaint Chief Complaint: UCRespiratory Stated Complaint: SINUS COMPLAINT Time Seen by Provider: 05/07/18 14:10 Hx Obtained From: Patient Onset/Duration: Gradual Onset, Lasting Weeks, Still Present Timing: Constant Severity Initially: Moderate Pain Intensity: 8 Pain Scale Used: 0-10 Numeric Character: Cough: Nonproductive Aggravating Factors: Nothing Alleviating Factors: Nothing Associated Signs And Symptoms: Positive: URI, Nasal Congestion, Hoarseness. Negative: Dyspnea, Fever, Chills, Wheezing - Allergies/Home Medications Allergies/Adverse Reactions: Allergies Allergy/AdvReac Type Severity Reaction Status Date / Time fluoxetine [From Prozac] Allergy Headache Verified 05/07/18 13:49 Penicillins Allergy Hives Verified 05/07/18 13:49 PMH/Surg Hx/FS Hx/Imm Hx Endocrine History: Hypothyroidism Cardiovascular History: Hypertension - Surgical History Surgical History: Yes Surgery Procedure, Year, and Place: 1985 APPENDECTOMY, [facility] – [place]. 1978 LEFT OVARY AND FALLOPIAN TUBE REMOVAL, [facility] – [place]. 2011 SINUS SURGERY, [place]. 09/2016 - LT WRIST - W/[facility] - Family History Known Family History: Negative: Hypertension - Social History Alcohol Use: Weekly Substance Use Type: None Smoking Status (MU): Never Smoked Tobacco Have You Smoked in the Last Year: No Review of Systems Constitutional: Negative ENT: Ear Ache, Nasal Discharge Respiratory: Cough Cardiovascular: Negative Gastrointestinal: Negative Genitourinary: Negative All Other Systems Reviewed And Are Negative: Yes Physical Exam Triage Information Reviewed: Yes Appearance: Well-Appearing, No Pain Distress, Well-Nourished Vital Signs: Initial Vital Signs Temp 98.9 F 05/07/18 13:44 Pulse 79 05/07/18 13:44 Resp 18 05/07/18 13:44 BP 131/82 05/07/18 13:44 Pulse Ox 97 05/07/18 13:44 Vital Signs Reviewed: Yes Eyes: Positive: Conjunctiva Clear ENT: Positive: Hearing grossly normal, Pharynx normal, TMs normal - SLIGHT INJECTION LEFT TM, Hoarse voice Neck: Positive: Supple, Nontender, No Lymphadenopathy Respiratory Exam: Normal Cardiovascular Exam: Normal Abdomen Description: Positive: Soft Musculoskeletal: Positive: No Edema Neurological: Positive: Alert Psychological: Positive: Age Appropriate Behavior Skin: Negative: rashes UC Diagnostic Evaluation - Laboratory O2 Sat by Pulse Oximetry: 97 Respiratory Course/Dx - Differential Dx/Diagnosis Provider Diagnoses: ACUTE URI Discharge - Sign-Out/Discharge Documenting (check all that apply): Patient Departure All imaging exams completed and their final reports reviewed: No Studies - Discharge Plan Condition: Stable Disposition: HOME Prescriptions: Azithromycin 500 mg PO DAILY #5 tab Patient Education Materials: Upper Respiratory Infection (ED) Referrals: Kaye Vizcaino MD [Primary Care Provider] - If Needed Additional Instructions: YOUR SYMPTOMS MAY BE VIRALLY MEDIATED BUT GIVEN THE LENGTH OF TIME YOU HAVE BEEN ILL WE WILL COVER YOU WITH ANTIBIOTICS. IF YOU START THE MEDICINE BE SURE TO TAKE IT FOR THE FULL COURSE. REST, HYDRATE, OTC MEDS NEEDED. SEEK FOLLOW- UP WITH YOUR PCP IF YOU ARE NOT IMPROVING OVER THE NEXT 1-2 WEEKS. USE OTC AFRIN FOR NASAL CONGESTION. 2 SPRAYS IN EACH NOSTRIL TWICE DAILY NEEDED. DO NOT USE FOR MORE THAN 3 DAYS IN A ROW TO PREVENT DEVELOPING REBOUND CONGESTION. - Billing Disposition and Condition Condition: STABLE Disposition: Home
== END 2018-05-07 14:28 | disposition home or self-care (01) ==
LOC: UCEAST 13:36
DX: J06.9 Acute upper respiratory infection, unspecified (principal); Z88.0 Allergy status to penicillin; Z88.8 Allergy status to other drugs, medicaments and biological substances
CPT/HCPCS: 99212; G0463